=== PATIENT | female | born 1960 | race Caucasian/White ===

== ENCOUNTER 2018-09-15 17:54 | Emergency (ER) | payer MEDICARE ==
--- NOTE | 2018-09-15 18:39 | UC ---
Bite Injury/Animal HPI - HPI Summary HPI Summary: 58 yo female presents with RIGHT hand dog bite. Pt tells me that on 09/04 she was trying to keep her dog away from attacking a mouse under her stove and her dog accidentally big pt's right index finger. Pt did not seek medical treatment for this. She tells me that since that time her finger, dorsal and volar hand became very red, swollen, and hot. She had swelling and streaking extending to her right wrist and distal right forearm. Over the last 3-4 days the forearm and wrist redness swelling have significantly improved, but she is still having redness, swelling, and drainage at her right index finger with a thick, taught, leathery appearance to her palm. She is diabetic. She is unsure the date of her last tetanus. She denies fevers or chills. - History of Current Complaint Stated Complaint: RIGHT INDEX FINGER DOG BITE Time Seen by Provider: 09/15/18 18:39 Hx Obtained From: Patient Severity Currently: Mild Severity Initially: Moderate Pain Intensity: 4 Pain Scale Used: 0-10 Numeric Onset/Duration: Gradual Onset Type of Bite: Animal Has Animal Been Immunized?: Yes Character: Puncture - Allergies/Home Medications Allergies/Adverse Reactions: Allergies Allergy/AdvReac Type Severity Reaction Status Date / Time Penicillins Allergy Rash, SOB Verified 09/15/18 18:51 Home Medications: Home Medications Allopurinol TAB* [Zyloprim 100 MG TAB*] 100 mg PO DAILY 09/15/18 [History Confirmed 09/15/18] Aspirin TAB* [Aspirin 325 MG TAB*] 325 mg PO DAILY 09/15/18 [History Confirmed 09/15/18] Calcium Polycarbophil TAB* [Fibercon TAB*] 625 mg PO DAILY 09/15/18 [History Confirmed 09/15/18] Cyanocobalamin TAB* [Vitamin B12 TAB*] 1,000 mcg PO DAILY 09/15/18 [History Confirmed 09/15/18] Cyclobenzaprine TAB* [Flexeril 10 MG TAB*] 10 mg PO BID PRN 09/15/18 [History Confirmed 09/15/18] Folic Acid TAB* [Folvite TAB*] 1 mg PO DAILY 09/15/18 [History Confirmed ] Furosemide TAB* [Lasix TAB*] 40 mg PO DAILY 09/15/18 [History Confirmed 09/15/18 ] Gabapentin CAP(*) [Neurontin 400 mg CAP(*)] 400 mg PO DAILY 09/15/18 [History Confirmed 09/15/18] Insulin Degludec [Tresiba Flextouch U-200] 200 unit SQ SEE INSTRUCTIONS [History Confirmed 09/15/18] Insulin LISPRO* [HumaLOG*] 0 units SUBCUT DIRECTED 09/15/18 [History Confirmed 09/15/18] Lisinopril TAB* [Prinivil TAB*] 10 mg PO DAILY 09/15/18 [History Confirmed 09/15] Magnesium [Magnesium Elemental] 400 mg PO DAILY 09/15/18 [History Confirmed ] Methotrexate* 4 tab PO WEEKLY 09/15/18 [History Confirmed 09/15/18] Multivitamins/Minerals TAB* [Theragran/minerals TAB*] 1 tab PO DAILY 09/15/18 [ History Confirmed 09/15/18] Oxymorphone HCl [Opana] 5 mg PO Q6HR PRN 09/15/18 [History Confirmed 09/15/18] Pentoxifylline CR TAB* [TRENtal CR TAB*] 400 mg PO DAILY 09/15/18 [History Confirmed 09/15/18] Potassium Chlor TAB* [Klor Con ER TAB*] 10 meq PO DAILY 09/15/18 [History Confirmed 09/15/18] Pravastatin Sodium [Pravachol] 40 mg PO DAILY 09/15/18 [History Confirmed ] Pregabalin CAP(*) [Lyrica CAP(*)] 50 mg PO BID 09/15/18 [History Confirmed 09/15] Sertraline* [Zoloft*] 100 mg PO DAILY 09/15/18 [History Confirmed 09/15/18] Spironolactone TAB* [Aldactone TAB*] 25 mg PO DAILY 09/15/18 [History Confirmed 09/15/18] busPIRone TAB* [Buspar TAB*] 10 mg PO DAILY 09/15/18 [History Confirmed 09/15/18 ] celeCOXIB CAP* [CeleBREX CAP*] 200 mg PO DAILY 09/15/18 [History Confirmed 09/15] metFORMIN* [Glucophage 1000 MG TAB *] 1,000 mg PO BID 09/15/18 [History Confirmed 09/15/18] PMH/Surg Hx/FS Hx/Imm Hx - Additional Past Medical History Additional PMH: chronic pain Endocrine History: Diabetes, Dyslipidemia Cardiovascular History: Hypertension, Congestive Heart Failure Psychological History: Anxiety, Depression - Family History Known Family History: Positive: Cardiac Disease, Hypertension, Diabetes - Social History Lives: With Family Alcohol Use: None Substance Use Type: None Smoking Status (MU): Former Smoker Review of Systems All Other Systems Reviewed And Are Negative: Yes Constitutional: Positive: Negative Skin: Positive: Other - Right hand dog bite Respiratory: Positive: Negative Cardiovascular: Positive: Negative Neurovascular: Positive: Negative Musculoskeletal: Positive: Negative Neurological: Positive: Negative Psychological: Positive: Negative Physical Exam - Summary Physical Exam Summary: GENERAL: NAD. WDWN. No pain distress. SKIN: see MSK CHEST: No accessory muscle use. Breathing comfortably and in no distress. CV: Pulses intact radial and ulnar. Cap refill <2seconds MSK: RIGHT HAND: At proximal 2nd digit there is moderate erythema and edema with a 4mm puncture wound with yellow/green purulent drainage. Palm with leathery taught appearance and erythematous. Faint erythematous streak extending from dorsal 2nd MCP to right wrist and distal right forearm -- NTTP here. She keeps her 2nd digit extended and is unable to flex at the MCP due to edema. NEURO: Alert. Sensations intact hand and all fingers. PSYCH: Age appropriate behavior. Triage Information Reviewed: Yes Vital Signs: Vital Signs: Temp Pulse Resp BP Pulse Ox 97.3 F 78 16 117/62 99 09/15/18 18:36 09/15/18 18:36 09/15/18 18:36 09/15/18 18:36 09/15/18 18:36 Vital Signs Reviewed: Yes Bite Injury Course/Dx - Course Course Of Treatment: XR: No radiologist read after 1800, therefore wet read by myself is negative for fracture or obvious osteomyelitis. Given her diabetes and the extensive erythema, edema, and streaking - I am most concerned about infectious tenosynovitis or osteomyelitis. For these reasons I recommended pt be further evaluated in the ED. She was agreeable to this. Report called to Dr. Stein at [place] [facility]. - Differential Dx/Diagnosis Provider Diagnosis: Dog bite of right hand Discharge - Sign-Out/Discharge Documenting (check all that apply): Patient Departure All imaging exams completed and their final reports reviewed: No - Discharge Plan Condition: Stable Disposition: HOME-RECOMMEND TO ED Referrals: Pepe Bird PA [Primary Care Provider] - Additional Instructions: Please go directly to the ER for further evaluation of your hand wound, redness , swelling, and streaking - Billing Disposition and Condition Condition: STABLE Disposition: Home-Recommend to ED - Attestation Statements Provider Attestation: Per institutional requirements, I have reviewed the chart, however, I was not consulted specifically or made aware of this patient by the midlevel provider. I did not personally evaluate, interact with , or disposition this patient.
[2018-09-15 18:50] VITALS: BP 117/62
[2018-09-15] MEDS ORDERED: Tetan/Diph/Pertus SYR(Tdap)* 0.5 ML SYR(BOOSTRIX) use SYR IM ONE (18:55)
--- NOTE | 2018-09-16 08:18 | UC ---
- Progress Note Progress Note: xray report right hand : IMPRESSION: SOFT TISSUE SWELLING, NO SPECIFIC EVIDENCE FOR OSTEOMYELITIS. IF THERE IS A HIGH CLINICAL INDEX OF SUSPICION FOR OSTEOMYELITIS CONSIDER AN MRI STUDY WITHOUT CONTRAST OR A THREE-PHASE BONE SCAN. Course/Dx - Diagnoses Provider Diagnoses: Dog bite of right hand Discharge - Sign-Out/Discharge Documenting (check all that apply): Patient Departure All imaging exams completed and their final reports reviewed: Yes - Discharge Plan Condition: Stable Disposition: HOME-RECOMMEND TO ED Referrals: Pepe Bird PA [Primary Care Provider] - Additional Instructions: Please go directly to the ER for further evaluation of your hand wound, redness , swelling, and streaking - Billing Disposition and Condition Condition: STABLE Disposition: Home-Recommend to ED
== END 2018-09-15 20:01 | disposition home health service (06) ==
LOC: UCCORT 17:54
DX: S61.230A Puncture wound without foreign body of right index finger without damage to nail, initial encounter (principal); W54.0XXA Bitten by dog, initial encounter; Y92.000 Kitchen of unspecified non-institutional (private) residence as the place of occurrence of the external cause; Z23 Encounter for immunization; G89.29 Other chronic pain; E11.9 Type 2 diabetes mellitus without complications; Z79.84 Long term (current) use of oral hypoglycemic drugs; Z79.4 Long term (current) use of insulin; E78.5 Hyperlipidemia, unspecified; I11.0 Hypertensive heart disease with heart failure; I50.9 Heart failure, unspecified; F41.9 Anxiety disorder, unspecified; F32.9 Major depressive disorder, single episode, unspecified; Z88.0 Allergy status to penicillin; Z87.891 Personal history of nicotine dependence
CPT/HCPCS: 87070; 87205; 90471; 90715; 99212; G0463

== ENCOUNTER → 2019-01-12 06:26 | Day surgery (SDC) | payer MEDICARE ==
[~2019-01-12 06:26] MED LIST: Bupivacaine 0.25% SDV PF* 10 ML VIAL INJ ONE; Lidocaine 1% INJ* 10 MG/ML 30 ML SDV ONE; Lidocaine 1% w EPI 1:200,000* SDV 30 ML VIAL ONE; Sodium Bicarbonate 8.4%* 50 ML SYRINGE ONE; ceFAZolin 1 GM ADVAN(*) 1 GM ADDV.VIAL IVPB ONE; ceFAZolin 2 GM in NS PREMIX(*) 2 GM/100 ML BAG IVPB ONE
[2019-01-12 10:51] VITALS: BP 118/66
--- NOTE | 2019-01-12 16:28 | OP ---
DATE OF OPERATION: 01/12/19 [facility] DATE OF : 58 SURGEON: Taz Cullen MD ELEVATOR TECHNICIAN: JULIA Ayala. An teachers' assistant was needed for the entirety of the procedure to aid in positioning of the arm and retraction. ANESTHESIOLOGIST: None. ANESTHESIA: Local only with 1% lidocaine with epinephrine. PRE-OP DIAGNOSIS: Right index finger flexor tendon adhesions secondary to a dog bite injury that occurred in August with possible tendon rupture. POST-OP DIAGNOSIS: Right index finger flexor digitorum superficialis and flexor digitorum profundus tendon rupture that looked like it occurred near the palmar aspect of the proximal interphalangeal joint. OPERATIVE PROCEDURE: Excision of flexor tendon remnant and placement of a silicone Giovany laz. INDICATIONS: Leah had the injury back in August, was a dog bite. It was complicated by infection. She has had that all cleared up now, but she is unable to flex the index finger. States that she thinks that initially right after the dog bite she was able to flex it; however, after she came out of the hospital, she has been unable to bend it since being discharged on 09/25/18. Told that it was either due to adhesions or tendon rupture. She cannot actively bend the PIP or the DIP. I had her worked to regain all of her passive motion, and she now presents for exploration of the tendons with treatment as needed. ESTIMATED BLOOD LOSS: 20 mL. COMPLICATIONS: None. FINDINGS: See above and below. DESCRIPTION OF PROCEDURE: Leah was seen in the preoperative holding area. The correct site, side, and procedure were identified. We came back to the operating room. The arm was prepped and draped in the usual fashion and a time- out was performed. I went ahead and made a Nina type incision over the length of the palmar aspect of the index finger. The digital nerves were protected as full- thickness flaps were raised off the flexor tendon. There was a lot of scar tissue and adhesions near the area of the A3 geeta and down in the palm near the lumbrical. I went ahead and dissected down. It became very obvious that the tendons had ruptured. The proximal stump of the tendon was seen right near the lumbrical muscle. Both the FDS and FDP tendon stumps were encountered there. There was a small strand of fibrotic tissue that had traversed the site of the tendon rupture and that coursed down to the area of the A3 geeta, where there was dense amount of scar tissue was performed. I went ahead and used my tenolysis knives to separate and preserve the tendon sheath that was around those. The pulleys were preserved. I excised the diseased portion of the tendon down in the finger, leaving a stump of FDP tendon down near the DIP joint. I then placed a Giovany laz, sewn in distally with 4-0 Prolene suture. The proximal aspect of the Giovany laz was taken down into the palm near the FDP tendon stump at the lumbrical. It was not sewn in there as it was not an active implant. At this point, everything was looking very good. I had put up the tourniquet for a period of time during the surgery just to help move things along. Skin was closed. She was placed in a soft dressing. POSTOPERATIVE PLAN: She understands she will need to regain all of her passive motion prior to any consideration of stage II flexor tendon reconstruction. She will follow up with me in about a week and half. [id number]/[facility] #: [id number] JOSSY
--- NOTE | 2019-01-20 13:00 | HP ---
HISTORY AND PHYSICAL: DATE OF ADMISSION/SURGERY: 01/12/19 CHIEF COMPLAINT: Followup right index finger pain and stiffness. HISTORY OF PRESENT ILLNESS: Laeh is a 58-year-old female who follows up for right index finger pain and stiffness after she was bitten by a dog approximately 2-1/2 months ago. It was complicated by infection. She had an MRI done recently and then an ultrasound showed what looked like there was something that resembled the tendon seen on the scans, but she has no active motion in the finger except for the MP joint, but she has active motion passively. She has worked hard and she now has full passive flexion at the PIP and DIP joints. She denies numbness or tingling or other associated symptoms. PAST MEDICAL HISTORY: Hypertension, history of DVT, hyperlipidemia, gout, arthritis, type 2 diabetes, ulcer, depression, anxiety. PAST SURGICAL HISTORY: Ovarian cyst removed and an L5-S1 diskectomy. FAMILY HISTORY: Diabetes, heart disease, hypertension, stroke, cancer, and rheumatoid arthritis. SOCIAL HISTORY: She lives alone. She is disabled. She does not smoke. She quit 3 years ago. REVIEW OF SYSTEMS: As above. PHYSICAL EXAMINATION GENERAL: Awake and alert, very pleasant. LUNGS: Clear. CARDIAC: Regular. MUSCULOSKELETAL: There is a little bit of swelling in the right index finger around the PIP and MCP joints. She has excellent MCP joint active motion. She has full passive PIP and DIP joint motion, but no active flexion. She is nontender. There is no erythema or any signs of infection. SKIN: Intact. No rashes or lesions. IMPRESSION: Right index finger pain and loss of motion in the PIP and DIP joints after a dog bite, it was complicated by infection. The infection is now long since resolved. PLAN/RECOMMENDATIONS: We had talked about her options, we talked about surgery , and then she had an MRI and an ultrasound that showed something in the area of the flexor tendon, but it seems like the flexor tendons are ruptured. I talked her about her options. The plan will be for right index finger flexor tendon exploration with possible tenolysis versus possible tendon repair or silicone laz placement. She agrees and she would like to proceed with surgery. She understands the risks including the risk of having a finger that does not move much despite having surgery. Again, she wants to proceed. [id number]/[facility] #: [id number] [facility]PITALAhs[facility]
== END | disposition home or self-care (01) ==
LOC: OR 06:26
PROVIDERS: ATTEND Orthopaedic Surgery Hand Surgery
DX: S66.11 Strain of flexor muscle, fascia and tendon of other and unspecified finger at wrist and hand level (principal); S61.25 Open bite of finger without damage to nail; W54.0XXS Bitten by dog, sequela; Y92.9 Unspecified place or not applicable; I10 Essential (primary) hypertension; Z86.718 Personal history of other venous thrombosis and embolism; E11.9 Type 2 diabetes mellitus without complications; Z79.84 Long term (current) use of oral hypoglycemic drugs; Z79.4 Long term (current) use of insulin; E78.00 Pure hypercholesterolemia, unspecified; M19.90 Unspecified osteoarthritis, unspecified site; F41.8 Other specified anxiety disorders; Z88.0 Allergy status to penicillin; Z88.1 Allergy status to other antibiotic agents
CPT/HCPCS: C1713; J0690; J2001; J3490

== ENCOUNTER 2019-04-27 08:43 | Day surgery (SDC) | payer MEDICARE ==
[~2019-04-27 08:43] MED LIST changes: +Buffered Lidocaine 1% SYRIN* 1 ML/SYRINGE INTRADERM ONE; -Bupivacaine 0.25% SDV PF* 10 ML VIAL INJ ONE; +Famotidine IV* 10 MG/ML 2 ML (20 mg) IV ONE; +Gabapentin CAP(*) 300 MG PO ONE; +Lactated Ringers 1000 ML Bag* 1,000 ML IV SCH; -Lidocaine 1% INJ* 10 MG/ML 30 ML SDV ONE; -Lidocaine 1% w EPI 1:200,000* SDV 30 ML VIAL ONE; -Sodium Bicarbonate 8.4%* 50 ML SYRINGE ONE; -ceFAZolin 1 GM ADVAN(*) 1 GM ADDV.VIAL IVPB ONE; -ceFAZolin 2 GM in NS PREMIX(*) 2 GM/100 ML BAG IVPB ONE
[2019-04-27] MEDS ORDERED: Famotidine IV* 10 MG/ML 2 ML (20 mg) ONE (09:45)
[2019-04-27] MEDS ORDERED: Gabapentin CAP(*) 300 MG ONE (09:45)
[2019-04-27] MEDS ORDERED: Clindamycin 900 MG/D5W BAG(*) 900 MG/50 ML BAG IVPB ONE (09:45)
[2019-04-27] MEDS ORDERED: Buffered Lidocaine 1% SYRIN* 1 ML/SYRINGE INTRADERM ONE (09:45)
[2019-04-27] MEDS ORDERED: fentaNYL* 50 MCG/ML 2 ML VIAL (100 MCG VIAL) ONE ×2 (10:49→13:19)
[2019-04-27] MEDS ORDERED: Midazolam* 1 MG/ML 2 ML VIAL (2 MG) ONE (10:49)
[2019-04-27] MEDS ORDERED: Bupivacaine 0.25% SDV PF* 10 ML VIAL INJ ONE (11:03)
[2019-04-27] MEDS ORDERED: Bupivacaine 0.5%* 50 ML MDV VIAL ONE (11:03)
[2019-04-27] MEDS ORDERED: Lidocaine 1% INJ* 10 MG/ML 30 ML SDV ONE (11:03)
[2019-04-27] MEDS ORDERED: Ketorolac INJ* 30 MG/ML 1 ML VIAL ONE (11:34)
[2019-04-27] MEDS ORDERED: Propofol* 10 MG/ML 20 ML BTL ONE (11:34)
[2019-04-27] MEDS ORDERED: Lidocaine 2% PF * 5 ML VIAL ONE (11:35)
[2019-04-27] MEDS ORDERED: KETAMINE HCL* 50 MG/ML 10 ML VIAL ONE (11:37)
[2019-04-27] MEDS ORDERED: Bupivacaine 0.25% SDV* 30 ML ONE (11:54)
[2019-04-27] MEDS ORDERED: Naloxone* 0.4 MG/ML 1 ML VIAL IV PRN (12:08)
[2019-04-27] MEDS ORDERED: fentaNYL* 50 MCG/ML 2 ML VIAL (100 MCG VIAL) IV PRN (12:08)
[2019-04-27] MEDS ORDERED: oxyCODONE TAB* 5 MG TAB PO PRN (12:08)
[2019-04-27] MEDS ORDERED: DiMENhydriNATE IV* 50 MG/ML VIAL IV PUSH PRN (12:08)
[2019-04-27] MEDS ORDERED: PROCHLORPERAZINE INJ 5 MG/ML 2 ML VIAL IV PRN (12:08)
[2019-04-27] MEDS ORDERED: diPHENhydraMINE IV* 50 MG/ML 1 ml VIAL (BENADRYL) IV PRN (12:08)
[2019-04-27] MEDS ORDERED: Ondansetron INJ* 2 MG/ML VIAL ONE (13:19)
[2019-04-27] MEDS ORDERED: Acetaminophen IV 1GM/100ML * 100 ML ONE (13:20)
[2019-04-27 14:35] VITALS: BP 117/74
--- NOTE | 2019-04-27 21:16 | OP ---
DATE OF OPERATION: 04/27/19 - [facility] DATE OF : 58 SURGEON: Taz Cullen MD WINDOW GLAZIER HELPER: JULIA Ayala. An anesthetic assistant was needed for the entirety of the procedure to aid in positioning of the arm and retraction. ANESTHESIOLOGIST: Dr. Juarez. ANESTHESIA: Local, MAC. PRE-OP DIAGNOSIS: Status post right index finger stage 1 flexor tendon reconstruction. POST-OP DIAGNOSIS: Status post right index finger stage 1 flexor tendon reconstruction. OPERATIVE PROCEDURE: Stage 2 flexor tendon reconstruction with removal of silicone laz and placement of palmaris longus tendon graft. INDICATIONS: Ms. Murdock has the aforementioned injury. She has gotten all of her motion back. She is older and she does have diabetes, so there is a high chance of failure here. The alternative will be fusion of the joints. She wants to try the tendon reconstruction. She understands at some point she may need a fusion. ESTIMATED BLOOD LOSS: 5 mL. COMPLICATIONS: None. FINDINGS: See above and below. DESCRIPTION OF PROCEDURE: Ms. Murdock was seen in the preoperative holding area. The correct site, side, and procedure were identified. We came back to the operating room. The arm was prepped and draped in the usual fashion and a time- out was performed. The arm was exsanguinated with the Esmarch and the tourniquet was inflated. Reopened her incision over the distal interphalangeal joint. Dissection was carried down, the laz was mobilized. I reopened her incision in the palm. This was extended little bit proximally. The neurovascular bundle as well as the flexor tendon area was dissected out. The laz was identified in the proximal wound as well. I then made a 1-cm incision just over the palmaris longus tendon. This was released proximally and then tendon strip was used to harvest the length of the tendon. The tendon graft was then sown to the distal aspect of the laz and then the laz was pulled back in the proximal wound delivering the tendon graft into the sheath. The tendon graft was then secured distally with a 2-0 Prolene pull through suture tied over the nail plate. Additionally, I had placed 1 Arthrex Bertha suture anchor and 3-0 FiberWire suture from that was whipstitched into the tendon to provide a second form of distal fixation. I then brought the tendon graft just deep to the neurovascular bundle and sewed it into the middle finger FDS tendon with the finger seen just slightly more flexed than the remainder of the fingers in the normal cascade. This was done with a 3- strand Pulvertaft weave. This was secured with multiple 3-0 Ethibond sutures. At this point, everything was looking very good. The wound was irrigated out. Skin was closed with 4-0 nylon suture, 0.25% Marcaine had been infiltrated at the beginning of the case. She had done quite well from pain standpoint throughout the procedure. The wound was dressed with Xeroform, 4x4s, sterile Webril, and then a dorsal blocking splint out to the fingertip with the MP joints and flexion was applied. She was taken to recovery room in stable condition. [id number]/[facility] #: [id number] JOSSY
== END 2019-04-27 14:55 | disposition home or self-care (01) ==
LOC: OR 08:43
PROVIDERS: ATTEND Orthopaedic Surgery Hand Surgery
DX: S66.110D Strain of flexor muscle, fascia and tendon of right index finger at wrist and hand level, subsequent encounter (principal); W54.0XXD Bitten by dog, subsequent encounter; Y92.9 Unspecified place or not applicable; I10 Essential (primary) hypertension; E11.9 Type 2 diabetes mellitus without complications; Z79.4 Long term (current) use of insulin; Z79.84 Long term (current) use of oral hypoglycemic drugs; Z88.0 Allergy status to penicillin; Z88.1 Allergy status to other antibiotic agents; Z87.891 Personal history of nicotine dependence; M19.90 Unspecified osteoarthritis, unspecified site
CPT/HCPCS: A9270-GY; C1713; J1885; J2250; J2405; J2704; J3010; J3490